=== PATIENT | male | born 1990 | race Caucasian/White ===

== ENCOUNTER 2016-08-16 06:02 | Emergency (ER) | payer OTHER ==
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
[~2016-08-16 06:02] MED LIST: CIPRO PO; DICLOFENAC PO; FLEXERIL PO; FLEXERIL10 M1; IBUPROFEN200 M1; IBUPROFEN800 MG PO; LORTAB 5/500 TA1 TA2 PO; MEDROL DOSEPAK4 MG DOB; MEDROL PO; NAPROSYN500 MG PO; NAPROXEN PO; NEURONTIN PO; NO MEDICATIONS; NORFLEX100 M1 PO; PREDNISONE PO; PREDNISONE1 MG PO; ROBAXIN 750750 M1 DOB; ROBAXIN 750750 M1 PO; ROBAXIN500 MG PO; TYLENOL #3 PO; VICODIN 5-3001 EACH PO; VOLTAREN75 MG PO
== END 2016-08-16 09:20 | disposition home or self-care (01) ==
LOC: CED 06:02
DX: S62.394A Other fracture of fourth metacarpal bone, right hand, initial encounter for closed fracture (principal); F17.200 Nicotine dependence, unspecified, uncomplicated; W22.8XXA Striking against or struck by other objects, initial encounter; Y92.009 Unspecified place in unspecified non-institutional (private) residence as the place of occurrence of the external cause
CPT/HCPCS: 29125; 73130; 99283